=== PATIENT | female | born 1975 | race Caucasian/White ===

== ENCOUNTER 2017-05-02 13:47 | Emergency (ER) | payer OTHER ==
[~2017-05-02] VITALS: Ht 162.6 cm; Wt 52.2 kg
[2017-05-02] MEDS ORDERED: KETO10TA2 PO (17:52)
[2017-05-02] MEDS ORDERED: ORPHENADRINE C100 MG PO (17:52)
== END 2017-05-02 17:54 | disposition home or self-care (01) ==
LOC: ER 13:47
DX: S93.402A Sprain of unspecified ligament of left ankle, initial encounter (principal); X50.3XXA Overexertion from repetitive movements, initial encounter; X50.9XXA Other and unspecified overexertion or strenuous movements or postures, initial encounter; Y93.89 Activity, other specified; Y92.89 Other specified places as the place of occurrence of the external cause; Y99.8 Other external cause status